=== PATIENT | male | born 1970 | race Two or more races ===

== ENCOUNTER 2020-09-11 10:47 | Outpatient (CLI) | payer OTHER | END 2020-09-11 23:59 | disposition home or self-care (01) | LOC: LAB 10:47 | PROVIDERS: ATTEND Family Medicine | DX: E34.9 Endocrine disorder, unspecified (principal); E22.9 Hyperfunction of pituitary gland, unspecified | CPT/HCPCS: 36415; 84146; 84402; 84403 ==